=== PATIENT | male | born 1975 | race Caucasian/White ===

== ENCOUNTER 2025-03-18 13:59 | Emergency (ER) | payer OTHER ==
[2025-03-18] MEDS ORDERED: Dexamethasone 10 MG/ML VIAL ONE (15:59)
== END 2025-03-18 16:05 ==
LOC: EEVIPCON 13:59 → ERS 13:59
DX: S01.112A Laceration without foreign body of left eyelid and periocular area, initial encounter (principal); Y04.8XXA Assault by other bodily force, initial encounter
CPT/HCPCS: 96372; 99283; J1100